=== PATIENT | female | born 1995 ===

== ENCOUNTER 2017-01-23 12:38 | Emergency (ER) | payer OTHER ==
--- NOTE | 2017-01-23 14:05 | UC ---
Back Pain HPI - HPI Summary HPI Summary: 21 y/o female presents to the urgent care c/o lower back pain radiating to the Rt leg for the past month. Pt doesn't recall any injury. However pain has increasing, specially in the past week with movement. Pain is 8/10. Pt reports she went to [facility] about 3 weeks ago and Rx Muscle relaxant. It helped for few days. Pt denies fever, Numbness or tingling over the lower extremities, saddle anesthesia, urinary or fecal incontinence, SOB, chest pain, N/V/D, abdominal pain. LMP:01/20/2017 just spotting. Pt denies Hx of STD's - History of Current Complaint Chief Complaint: UCBackPain Stated Complaint: BACK PAIN Time Seen by Provider: 01/23/17 14:02 Hx Obtained From: Patient Hx Last Menstrual Period: one week ago Onset/Duration: Gradual Onset, Lasting Weeks - 4 weeks, Still Present, Worse Since - last week Timing: Intermittent, Lasting Minutes Severity Initially: Mild Severity Currently: Moderate Pain Intensity: 8 Pain Scale Used: 0-10 Numeric Back Pain: Is Discrete @ - Lower back LF>RT Character: Sharp, Spasmodic Aggravating Factor(s): Movement, Lifting Alleviating Factor(s): Rest, OTC Meds Associated Signs And Symptoms: Positive: Negative. Negative: Swelling, Redness , Fever, Weakness, Numbness, Tingling, Flank Pain, Bladder Incontinence, Bowel Incontinence - Risk Factors AAA Risk Factors: Negative TAD Risk Factors: Negative Cauda Equina Risk Factors: Negative Epidural Abscess Risk Factors: Negative - Allergies/Home Medications Allergies/Adverse Reactions: Allergies Allergy/AdvReac Type Severity Reaction Status Date / Time No Known Allergies Allergy Verified 01/23/17 13:14 Home Medications: Home Medications NK [No Home Medications Reported] 01/23/17 [History Confirmed 01/23/17] PMH/Surg Hx/FS Hx/Imm Hx - Additional Past Medical History Additional PMH: Corneal ulcer Previously Healthy: Yes Respiratory History: Asthma - Surgical History Surgical History: None - Family History Family History: Cervical Cancer, lung cancer - Social History Occupation: Student Lives: Dormitory/Roommates Alcohol Use: None Substance Use Type: None Smoking Status (MU): Never Smoked Tobacco - Immunization History Vaccination Up to Date: Yes Review of Systems Constitutional: Negative Skin: Negative Eyes: Negative ENT: Negative Respiratory: Negative Cardiovascular: Negative Gastrointestinal: Negative Genitourinary: Negative Motor: Negative Neurovascular: Negative Musculoskeletal: Other: - Lower back pain radiating to RT leg Neurological: Negative Psychological: Negative Is Patient Immunocompromised?: No All Other Systems Reviewed And Are Negative: Yes Physical Exam Triage Information Reviewed: Yes Vital Signs: Initial Vital Signs Temp 98.9 F 01/23/17 13:09 Pulse 98 01/23/17 13:09 Resp 18 01/23/17 13:09 BP 118/73 01/23/17 13:09 Pulse Ox 100 01/23/17 13:09 - Additional Comments General: Patient is a well developed female adolescent without any distress that is laying comfortably in the stretcher. Skin: [place], warm, dry HEAD AND FACE: No signs of trauma. EYES: PERRLA, EOMI x 2. EARS: Hearing grossly intact. MOUTH: Oropharynx within normal limits. NECK: Supple, trachea is midline, no adenopathy, no JVD. CHEST: Symmetric, no tenderness at palpation LUNGS: CTA bilaterally, no rales, rhonchi or wheezing CVS: RRR, no murmur, rub, or gallop ABDOMEN: soft and Nontender without masses, no guarding or rebound. Bowel sounds are active. No Hepato-splenomegaly. No signs of inguinal hernias. BACK: Patient walked into the urgent care room with symmetric ambulation, No signs of limping, antalgic, able to bear weight. No signs of trauma, no soft tissue or muscle tenderness, ---- spasm in the Paraspinal muscles of the (lumbar ) spine. No masses palpated. Point tenderness at ----, No CVAT, no flank ecchymosis . No sacroiliac notch tenderness, No saddle anesthesia ROM: flexion/ extension/ lateral bending and rotation, note if limited or causes pain Straight Leg Raise: positive if radiates below knee at --- degrees. Patellar reflexes: brisk, symmetric Muscle strength lower extremities. Dorsiflexion/ plantar flexion of ankles. Heel/ toe walk Lower extremities: Femoral, popliteal, posterior tibial, and dorsalis pedis pulses with in normal, Rectal: Patient refused the exam. (Normal anal wink, rectal tone within normal limits). Neurological: WNL Psychological: WNL Skin: dry and warm Back Pain Course/Dx - Course Course Of Treatment: 21 y/o female presents to the urgent care c/o lower back pain radiating to the Rt leg for the past month. Pt doesn't recall any injury. However pain has increasing, specially in the past week with movement. Pain is 8/10. Pt reports she went to [facility] about 3 weeks ago and Rx Muscle relaxant. It helped for few days. Pt denies fever, Numbness or tingling over the lower extremities, saddle anesthesia, urinary or fecal incontinence, SOB, chest pain, N/V/D, abdominal pain. LMP:01/20/2017 just spotting. Pt denies Hx of STD's. Hx obtained - Differential Dx/Diagnosis Differential Diagnosis/HQI/PQRI: Cauda Equina Syndrome, Fracture, Herniated Disc , Renal Colic, Strain, Sprain Provider Diagnoses: 1- Acute lower back pain. 2- Muscle spasm Discharge - Discharge Plan Referrals: No Primary Care Phys,NOPCP [Primary Care Provider] -
[2017-01-23] MEDS ORDERED: Ibuprofen TAB* 400 MG PO ONE (14:35)
--- NOTE | 2017-01-23 15:19 | RAD ---
INDICATION: Low back pain COMPARISON: None TECHNIQUE: Routine PA, lateral, and oblique imaging was performed . FINDINGS: Bones: There are no acute bony findings. There are no significant osteoarthritic findings. Alignment: Normal Disc spaces: The disc spaces are well-maintained Soft tissues: There are no soft tissue abnormalities. IMPRESSION: NO PLAIN RADIOGRAPHIC ABNORMALITIES.
== END 2017-01-23 15:40 | disposition home or self-care (01) ==
LOC: UCEAST 12:38
DX: M54.5 Low back pain (principal); R25.2 Cramp and spasm; J45.909 Unspecified asthma, uncomplicated
CPT/HCPCS: 72110; 81003; 84702; 99202; A9270-GY; G0463

== ENCOUNTER 2018-04-08 01:52 | Emergency (ER) | payer OTHER ==
--- NOTE | 2018-04-08 03:48 | ED ---
Altered Mental Status - HPI Summary HPI Summary: Pt brought to ED by EMS after being found intoxicated and too stuporous to be helped home. LEVEL 5 CAVEAT: HPI UNOBTAINABLE DUE TO INTOXICATION - History Of Current Complaint Chief Complaint: EDSubstanceAbuse Stated Complaint: ASTHMA/ETOH Time Seen by Provider: 04/08/18 02:04 Hx From Patient Unobtainable Due To: Altered Mental Status - INTOXICATION Hx Last Menstrual Period: one week ago - Allergies/Home Medications Allergies/Adverse Reactions: Allergies Allergy/AdvReac Type Severity Reaction Status Date / Time No Known Allergies Allergy Verified 01/23/17 13:14 Home Medications: Home Medications Unobtainable 04/08/18 [History Confirmed 04/08/18] PMH/Surg Hx/FS Hx/Imm Hx Infectious Disease History: No Infectious Disease History: Denies: Traveled Outside the [place] in Last 30 Days - Family History Family History: Cervical Cancer, lung cancer - Social History Alcohol Use: None Substance Use Type: Reports: None Smoking Status (MU): Never Smoked Tobacco - Additional Comments History Additional Comments: LEVEL 5 CAVEAT: PMH UNOBTAINABLE DUE TO INTOXICATION. Review of Systems - ROS Summary Review of Systems Summary: LEVEL 5 CAVEAT: ROS UNOBTAINABLE DUE TO INTOXICATION All Other Systems Reviewed And Are Negative: No Physical Exam - Summary Physical Exam Summary: Appearance: Appears intoxicated Skin: Warm, dry, no obvious rash Eyes: sclera anicteric, no conjunctival pallor ENT: mucous membranes moist Neck: deferred Respiratory: No signs of respiratory distress Cardiovascular: Appears well perfused, pulses are nml Abdomen: deferred Musculoskeletal: Moving all 4 extremities without obvious discomfort Triage Information Reviewed: Yes Vital Signs On Initial Exam: Initial Vitals Temp Pulse Resp BP Pulse Ox 98.0 F 91 15 99/68 94 04/08/18 02:01 04/08/18 02:01 04/08/18 02:01 04/08/18 02:01 04/08/18 02:01 Vital Signs Reviewed: Yes Completion Of Physical Exam Limited Due To: Level 5 Diagnostics - Vital Signs Vital Signs Temp Pulse Resp BP Pulse Ox 04/08/18 02:01 98.0 F 91 15 99/68 94 - Laboratory Lab Statement: Any lab studies that have been ordered have been reviewed, and results considered in the medical decision making process. Altered Mental Statu Course/Dx - Course Course Of Treatment: This patient is a 22 year old female presenting to [facility] with a chief complaint of intoxication. After some rest she has become sober and feels like she can go home. A plan for discharge has been discussed with the patient and she is agreeable with this plan. - Diagnoses Provider Diagnoses: Alcohol intoxication Discharge - Sign-Out/Discharge Documenting (check all that apply): Patient Departure - Discharge Patient Received Moderate/Deep Sedation with Procedure: No - Discharge Plan Condition: Good Disposition: HOME Patient Education Materials: Alcohol Intoxication (ED) Referrals: [facility] [Outside] - Billing Disposition and Condition Condition: GOOD Disposition: Home - Attestation Statements Document Initiated by Babita: Yes Documenting Gemaibe: Noble Perry Provider For Whom Babita is Documenting (Include Credential): Artemio Green MD Scribe Attestation: Noble Oro scribed for Artemio Green MD on 04/10/18 at 1616. Scribe Documentation Reviewed: Yes Provider Attestation: The documentation as recorded by the Noble castelan accurately reflects the service I personally performed and the decisions made by Artemio smith MD Status of Scribe Document: Viewed
== END 2018-04-08 05:51 | disposition home or self-care (01) ==
LOC: ED 01:52
DX: F10.129 Alcohol abuse with intoxication, unspecified (principal)
CPT/HCPCS: 99282